=== PATIENT | male | born 1955 | race Caucasian/White ===

== ENCOUNTER 2024-06-19 17:44 | Inpatient (IN) | payer MEDICAID, MEDICARE, OTHER ==
[~2024-06-19] VITALS: Ht 182.9 cm; Wt 91.3 kg
[2024-06-19] MEDS: magnesium sulf-water 2g/50mL 50 ML IV ONE (17:59)
[2024-06-19 18:00] LABS: ABG BASE EXCESS -10.2 mmol/L (-2.0-3.0); ABG PCO2 (T) 30.4 mmHg (35.0-48.0); ABG PO2 (T) 248.8 mmHg (83.0-108.0); ALLEN'S TEST POSITIVE; FCOHb 0.2 % (0.5-1.5); FLOW 15 L/min; FMetHb 0.3 % (0.0-1.5); FO2Hb 98.5 % (94.0-98.0); MODE NRB; PATIENT TEMPERATURE 36.6; TOTAL HEMOGLOBIN 11.6 G/dl (13.5-17.5)
[2024-06-19 18:05] LABS: EOSINOPHILS # (AUTO) 0.1 X10'3 (0-0.9); EOSINOPHILS % (AUTO) 0.2 % (0-6); MEAN PLATELET VOLUME 7.4 FL (7.4-10.4); RED CELL DISTRIBUTION WIDTH 19.3 % (11.5-14.5)
[2024-06-19 18:07] LABS: BASOPHILS # (AUTO) 0.3 X10'3 (0-0.2); BASOPHILS % (AUTO) 1.1 % (0-1); HEMATOCRIT 34.5 % (42.0-52.0); HEMOGLOBIN 11.2 g/dl (14.0-17.9); LYMPHOCYTES # (AUTO) 1.8 X10'3 (1.1-4.8); LYMPHOCYTES % (AUTO) 7.5 % (21-51); MEAN CORPUSCULAR HEMOGLOBIN 27.5 PG (27.0-31.0); MEAN CORPUSCULAR HGB CONC 32.5 g/dL (33.0-36.5); MEAN CORPUSCULAR VOLUME 84.6 FL (78-98); MONOCYTES # (AUTO) 0.9 X10'3 (0-0.9); MONOCYTES % (AUTO) 3.6 % (2-12); NEUTROPHILS # (AUTO) 21.6 X10'3 (1.8-7.7); NEUTROPHILS % (AUTO) 87.6 % (42-75); PLATELET COUNT 868 X10'3 (140-440); RED BLOOD COUNT 4.07 X10'6 (4.70-6.10); WHITE BLOOD COUNT 24.7 X10'3 (4.5-11.0)
[2024-06-19] MEDS: normal saline 1000ml 1,000 ML IV ONE (18:12)
[2024-06-19] MEDS: normal saline 1000ML IV soln IVB ONE ×2 (18:13→20:44)
[2024-06-19 18:14] LABS: APTT 24 SECONDS (22-32); INR 1.3 INR; PROTHROMBIN TIME 13.3 SECONDS (9.0-12.0)
[2024-06-19] MEDS ORDERED: hydrocortisone sod succ/PF 100mg/2ml inj. IV SCH (18:20)
[2024-06-19 18:24] LABS: ALBUMIN 2.1 G/DL (3.4-5.0); ANION GAP 18 (8-16); BLOOD UREA NITROGEN 74 MG/DL (7-18); BUN/CREATININE RATIO 23.4 (10.0-20.0); CALCIUM 9.6 MG/DL (8.5-10.1); CHLORIDE 96 MMOL/L (99-107); CREATININE 3.16 MG/DL (0.60-1.10); GLUCOSE 313 MG/DL (70-104); PRO BRAIN NATRIURETIC PEPTIDE 1415 PG/ML (0-125); SODIUM 136 MMOL/L (135-145); TOTAL CARBON DIOXIDE 21.7 MMOL/L (24-32); eGFR 20 ML/MIN
[2024-06-19] MEDS: hydrocortisone sod succ/PF 100mg/2ml inj. IV ONE (18:32)
[2024-06-19] MEDS: piperacillin/tazo 3.375gm/50ml 50 ML IV ONE (18:53)
[2024-06-19 19:16] LABS: BILIRUBIN,URINE SMALL (Neg); CLARITY,URINE CLEAR (Clear); COLOR,URINE AMBER (Yellow); GLUCOSE, URINE 100 mg/dl (Neg); KETONES,URINE NEGATIVE (Neg); LEUKOCYTE ESTERASE ,URINE NEGATIVE (Neg); NITRITES, URINE NEGATIVE (Neg); OCCULT BLOOD,URINE SMALL (Neg); PROTEIN,URINE 30 mg/dl (Neg)
[2024-06-19] MEDS: ipratropium/albuterol 3ml nebule NEB ONE (19:18)
[2024-06-19 19:19] LABS: EOSINOPHILS % (MANUAL) 1 % (0-6); LARGE PLATELETS FEW; LYMPHOCYTES % (MANUAL) 6 % (21-51); METAMYLEOCYTES% (MANUAL) 3 % (0-0); MONOCYTES % (MANUAL) 3 % (2-12); NEUTROPHILS % (MANUAL) 87 % (42-75); PLATELET ESTIMATE INCREASED; POLYCHROMASIA 1+; TOTAL CELLS COUNTED 100
[2024-06-19 19:20] VITALS: PULSE 76; RESP 32; O2SAT 93
[2024-06-19 19:20] LABS: ELLIPTOCYTES 1+
[2024-06-19 19:21] LABS: UA COLLECTION TYPE FOLEY CATH
[2024-06-19 19:22] LABS: BACTERIA,URINE FEW /HPF (Neg); HYALINE CASTS 0-3 /LPF (NEGATIVE); SQUAMOUS EPITHELIAL CELL,UR NONE SEEN /LPF (FEW)
[2024-06-19 19:23] LABS: TRANSITIONAL EPI CELLS,URINE FEW /HPF; WBC,URINE NONE SEEN /HPF (0-4)
[2024-06-19 19:26] VITALS: PULSE 73; RESP 22; O2SAT 95
[2024-06-19 19:31] LABS: URINE AMPHETAMINE SCREEN NEGATIVE (Neg); URINE BARBITUATE SCREEN NEGATIVE (Neg); URINE BENZODIAZEPINES SCREEN NEGATIVE (Neg); URINE CANNABINOID SCREEN NEGATIVE (Neg); URINE COCAINE SCREEN NEGATIVE (Neg); URINE METHADONE SCREEN NEGATIVE (Neg); URINE OPIATE SCREEN NEGATIVE (Neg); URINE PHENCYCLIDINE SCREEN NEGATIVE (Neg)
[2024-06-19] MEDS: metroNIDAZOLE-Flagyl 500mg/NS 100 ML IV ONE (19:32)
[2024-06-19 20:00] LABS: ALANINE AMINOTRANSFERASE 37 U/L (12-78); ALBUMIN/GLOBULIN RATIO 0.3 (1.1-1.5); ALKALINE PHOSPHATASE 120 IU/L (46-116); ASPARTATE AMINO TRANSFERASE 70 U/L (10-37); CREATINE KINASE MB 2.9 ng/ml (0.3-3.6); TOTAL PROTEIN 8.2 G/DL (6.4-8.2)
[2024-06-19 20:03] LABS: BILIRUBIN,DIRECT 0.6 MG/DL (0-0.3); CKMB RELATIVE INDEX 0.2 RATIO (0-2.5); CREATINE KINASE 1788 U/L (39-308); PHOSPHORUS 10.9 MG/DL (2.3-4.5); POTASSIUM 5.1 MMOL/L (3.5-5.1)
[2024-06-19] MEDS: sodium bicarbonate (8.4%) 1 mEq/ml syringe IV ONE (20:04)
[2024-06-19 20:21] LABS: C-REACTIVE PROTEIN 27.18 MG/DL (0.0-0.5)
[2024-06-19] MEDS: morphine 2 MG/ML inj. syringe IV PRN (20:49)
[2024-06-19 21:07] LABS: LIPASE 28 U/L (16-77)
[2024-06-19] MEDS ORDERED: LIDOcaine 1% w/epiNEPHrine 1:200,000 30ml vial SQ ONE (23:10)
[2024-06-19] MEDS: morphine 4 MG/ML inj SYRINge IV ONE (23:24)
[2024-06-19] MEDS: ondansetron/PF 4mg/2ml inj IV ONE (23:24)
[2024-06-19] MEDS: LIDOcaine 1% W/epiNEPHrine 1:100,000 20ml vial IJ ONE (23:24)
[2024-06-19 23:44] LABS: CSF VOLUME 3.9 ML; TUBE# COUNTED 4
[2024-06-20 00:26] LABS: GLUCOSE,CSF 160 MG/DL (40-75); TOTAL PROTEIN,CSF 81 MG/DL (30-60)
[2024-06-20] MEDS: normal saline 1000ml 1,000 ML IV ONE (00:41)
[2024-06-20 00:43] LABS: CSF SUPERNATANT COLOR COLORLESS
[2024-06-20 00:44] LABS: APPEARANCE,CSF CLEAR; CSF RBC 97.2 /CU MM (0)
[2024-06-20 01:11] LABS: CSF WBC CT 1.7 /CU MM (0-5)
[2024-06-20 01:19] LABS: ABG BASE EXCESS -10.4 mmol/L (-2.0-3.0); ABG HCO3 14.6 mmol/L (21.0-28.0); ABG OXYGEN SATURATION 94.4 % (94.0-98.0); ABG PCO2 (T) 29.8 mmHg (35.0-48.0); ABG PO2 (T) 83.7 mmHg (83.0-108.0); ALLEN'S TEST Modified; FCOHb 0.3 % (0.5-1.5); FHHb 5.6 % (0.0-5.0); FLOW 5 L/min; FMetHb 0.3 % (0.0-1.5); FO2Hb 93.8 % (94.0-98.0); MODE NASAL CANNULA; PATIENT TEMPERATURE 37.3; TOTAL HEMOGLOBIN 10.7 G/dl (13.5-17.5)
[2024-06-20] MEDS: sodium bicarbonate 1meq/ml inj 150 ML in dextrose 5%-water 1,000 ML IV SCH (02:33)
[2024-06-20 03:12] LABS: APPEARANCE,CSF CLEAR; CSF SUPERNATANT COLOR COLORLESS; CSF VOLUME 3.9 ML; CSF WBC CT 2.2 /CU MM (0-5); TUBE# COUNTED 4
[2024-06-20 03:13] LABS: CSF RBC 97.8 /CU MM (0)
[2024-06-20] MEDS ORDERED: potassium Cl 40MEQ/1/2NS 520ml 520 ML IV PRN (03:30)
[2024-06-20] MEDS ORDERED: magnesium sulf-water 4G/100mL 100 ML IV PRN (03:30)
[2024-06-20] MEDS ORDERED: dextrose 50%-water 50ml dispensing syringe IV PRN ×2 (03:30)
[2024-06-20] MEDS ORDERED: HYDROcodone/acetaminophen 10/325mg tab PO PRN (03:30)
[2024-06-20] MEDS ORDERED: acetaminophen 325mg tablet PO PRN ×2 (03:30)
[2024-06-20] MEDS ORDERED: magnesium hydroxide 30ml (MOM) UD suspension PO PRN (03:30)
[2024-06-20] MEDS ORDERED: HYDROcodone/acetaminophen 5mg/325mg tablet PO PRN (03:30)
[2024-06-20] MEDS ORDERED: magnesium sulf-water 2g/50mL 50 ML IV PRN (03:30)
[2024-06-20] MEDS ORDERED: mag hydrox/Alum hydrox/simeth 30ml oral suspension PO PRN (03:30)
[2024-06-20] MEDS ORDERED: potassium Cl 20 mEq SR tablet PO PRN (03:30)
[2024-06-20] MEDS ORDERED: magnesium Cl slow-release 64mg tablet PO PRN (03:30)
[2024-06-20] MEDS ORDERED: glucagon, human recombinant 1mg kit SUBCUT PRN (03:30)
[2024-06-20] MEDS ORDERED: DEXTROSE 15 GM of carb/4 tabs (each vial/BOTTLE has 4 tablets) PO PRN ×2 (03:30)
[2024-06-20] MEDS: LidoCAINE 2% Topical Jelly 11mL syringe (UROJET) TOP ONE (04:02)
[2024-06-20] MEDS: VANCOMYCIN/WATER FOR INJ (PEG) 1.5GM/300 ML IVPB IV ONE (04:50)
[2024-06-20] MEDS: ondansetron/PF 4mg/2ml inj IV PRN (05:33)
[2024-06-20] MEDS: INSULIN LISPRO 100 UNIT/ML INSULN.PEN MULTI-DOSE SQ SCH ×2 (07:32→09:00)
[2024-06-20] MEDS: docusate sod 100mg capsule PO SCH (07:35)
[2024-06-20] MEDS: heparin, porcine 5000 units/ml vial SQ SCH (07:36)
[2024-06-20] MEDS: piperacillin/tazo 4.5gm/100ml 100 ML IV SCH (07:37)
[2024-06-20 07:56] LABS: POTASSIUM 4.6 MMOL/L (3.5-5.1); URIC ACID 9.2 MG/DL (3.5-7.2)
[2024-06-20] MEDS: K and/or MAG REPLACEMENT MC SCH (08:00)
[2024-06-20 08:09] LABS: HEMOGLOBIN A1C 8.2 % (4.5-6.2)
[2024-06-20 08:45] LABS: BASOPHILS # (AUTO) 0.1 X10'3 (0-0.2); BASOPHILS % (AUTO) 0.2 % (0-1); EOSINOPHILS % (AUTO) 0 % (0-6)
[2024-06-20 08:46] LABS: HEMOGLOBIN 9.6 g/dl (14.0-17.9); MEAN CORPUSCULAR HGB CONC 31.9 g/dL (33.0-36.5); MEAN CORPUSCULAR VOLUME 84.6 FL (78-98); MONOCYTES # (AUTO) 0.7 X10'3 (0-0.9); NEUTROPHILS # (AUTO) 22.4 X10'3 (1.8-7.7); NEUTROPHILS % (AUTO) 92.8 % (42-75); PLATELET COUNT 604 X10'3 (140-440); RED BLOOD COUNT 3.55 X10'6 (4.70-6.10); RED CELL DISTRIBUTION WIDTH 19.3 % (11.5-14.5); WHITE BLOOD COUNT 24.1 X10'3 (4.5-11.0)
[2024-06-20 09:10] LABS: ALANINE AMINOTRANSFERASE 40 U/L (12-78); ALKALINE PHOSPHATASE 83 IU/L (46-116); ANION GAP 14 (8-16); ASPARTATE AMINO TRANSFERASE 125 U/L (10-37); BILIRUBIN,TOTAL 0.8 MG/DL (0.1-1.0); BLOOD UREA NITROGEN 66 MG/DL (7-18); BUN/CREATININE RATIO 24.4 (10.0-20.0); CALCIUM 7.1 MG/DL (8.5-10.1); CHLORIDE 109 MMOL/L (99-107); CREATININE 2.71 MG/DL (0.60-1.10); GLUCOSE 355 MG/DL (70-104); MAGNESIUM 2.6 MG/DL (1.5-2.4); POTASSIUM 4.3 MMOL/L (3.5-5.1); SODIUM 144 MMOL/L (135-145); TOTAL CARBON DIOXIDE 21.5 MMOL/L (24-32); TOTAL PROTEIN 5.5 G/DL (6.4-8.2); eCRCL 29 ML/MIN; eGFR 24 ML/MIN
[2024-06-20 09:15] LABS: ALBUMIN 1.3 G/DL (3.4-5.0); ALBUMIN/GLOBULIN RATIO 0.3 (1.1-1.5)
[2024-06-20 09:38] LABS: C DIFF ANTIGEN NEGATIVE (NEGATIVE); C DIFF SPECIMEN=DIARRHEA? ACCEPTABLE; C DIFFICILE TOXINS A&B NEGATIVE (Neg)
[2024-06-20 10:03] VITALS: PULSE 88; RESP 22; O2SAT 95
[2024-06-20] MEDS ORDERED: levetiracetam inj 1,000 MG in normal saline 100ml IV soln 100 ML IV ONE (13:35)
[2024-06-20] MEDS: levetiracetam-NACL1000mg/100ml 100 ML IV ONE (13:50)
[2024-06-20] MEDS: acetaminophen 1,000mg/100ml IV 100 ML IV ONE (14:05)
[2024-06-20] MEDS: normal saline 1000ml 1,000 ML IV SCH (14:06)
[2024-06-20 20:10] LABS: ALANINE AMINOTRANSFERASE 44 U/L (12-78); ALBUMIN 1.3 G/DL (3.4-5.0); ALBUMIN/GLOBULIN RATIO 0.3 (1.1-1.5); ALKALINE PHOSPHATASE 87 IU/L (46-116); ANION GAP 10 (8-16); ASPARTATE AMINO TRANSFERASE 142 U/L (10-37); BILIRUBIN,TOTAL 0.7 MG/DL (0.1-1.0); BLOOD UREA NITROGEN 60 MG/DL (7-18); BUN/CREATININE RATIO 22.5 (10.0-20.0); CALCIUM 7.2 MG/DL (8.5-10.1); CHLORIDE 112 MMOL/L (99-107); CREATININE 2.67 MG/DL (0.60-1.10); GLUCOSE 241 MG/DL (70-104); POTASSIUM 3.8 MMOL/L (3.5-5.1); SODIUM 150 MMOL/L (135-145); TOTAL CARBON DIOXIDE 28.4 MMOL/L (24-32); TOTAL PROTEIN 5.7 G/DL (6.4-8.2); eCRCL 30 ML/MIN; eGFR 24 ML/MIN
[2024-06-20] MEDS: insulin glargine (Lantus) pen - multi-dose SQ SCH (21:00)
[2024-06-20] MEDS: sodium chloride 0.45% 1,000 ML IV SCH (23:33)
[2024-06-21] VITALS (8 sets, daily range): BP systolic 88–109; BP diastolic 48–77; PULSE 73–92; RESP 18–24; TEMP 97–98.8; O2SAT 95–98
[2024-06-21] MEDS: morphine 2 MG/ML inj. syringe IV PRN (00:17)
[2024-06-21 06:54] LABS: BASOPHILS # (AUTO) 0.1 X10'3 (0-0.2); BASOPHILS % (AUTO) 0.6 % (0-1); EOSINOPHILS # (AUTO) 0.1 X10'3 (0-0.9); EOSINOPHILS % (AUTO) 0.7 % (0-6); HEMATOCRIT 31.7 % (42.0-52.0); HEMOGLOBIN 10.1 g/dl (14.0-17.9); LYMPHOCYTES # (AUTO) 1.3 X10'3 (1.1-4.8); LYMPHOCYTES % (AUTO) 7.4 % (21-51); MEAN CORPUSCULAR HEMOGLOBIN 26.8 PG (27.0-31.0); MEAN CORPUSCULAR HGB CONC 31.7 g/dL (33.0-36.5); MEAN CORPUSCULAR VOLUME 84.4 FL (78-98); MEAN PLATELET VOLUME 7.2 FL (7.4-10.4); MONOCYTES # (AUTO) 0.9 X10'3 (0-0.9); MONOCYTES % (AUTO) 5.1 % (2-12); NEUTROPHILS # (AUTO) 15.5 X10'3 (1.8-7.7); NEUTROPHILS % (AUTO) 86.2 % (42-75); PLATELET COUNT 552 X10'3 (140-440); RED BLOOD COUNT 3.76 X10'6 (4.70-6.10); RED CELL DISTRIBUTION WIDTH 19.4 % (11.5-14.5)
[2024-06-21 07:02] LABS: APTT 26 SECONDS (22-32); INR 1.3 INR; PROTHROMBIN TIME 13.7 SECONDS (9.0-12.0)
[2024-06-21 07:07] LABS: ALANINE AMINOTRANSFERASE 51 U/L (12-78); ALBUMIN 1.3 G/DL (3.4-5.0); ALBUMIN/GLOBULIN RATIO 0.3 (1.1-1.5); ALKALINE PHOSPHATASE 83 IU/L (46-116); ANION GAP 8 (8-16); ASPARTATE AMINO TRANSFERASE 145 U/L (10-37); BILIRUBIN,TOTAL 0.6 MG/DL (0.1-1.0); BLOOD UREA NITROGEN 56 MG/DL (7-18); BUN/CREATININE RATIO 22.4 (10.0-20.0); CHLORIDE 113 MMOL/L (99-107); GLUCOSE 239 MG/DL (70-104); HDL CHOLESTEROL 13 MG/DL (35-60); LDL CHOLESTEROL 21 MG/DL (50-100); MAGNESIUM 2.6 MG/DL (1.5-2.4); PHOSPHORUS 4.6 MG/DL (2.3-4.5); POTASSIUM 3.5 MMOL/L (3.5-5.1); SODIUM 149 MMOL/L (135-145); TOTAL CARBON DIOXIDE 28.1 MMOL/L (24-32); TOTAL PROTEIN 5.7 G/DL (6.4-8.2); TRIGLYCERIDES 109 MG/DL (20-135); eCRCL 32 ML/MIN; eGFR 26 ML/MIN
[2024-06-21 07:28] LABS: CHOLESTEROL < 50 MG/DL (0-200)
[2024-06-21 08:01] LABS: ANISOCYTOSIS 2+; HYPOCHROMASIA 1+; PLATELET ESTIMATE INCREASED
[2024-06-21 08:02] LABS: ELLIPTOCYTES FEW; LARGE PLATELETS FEW; POLYCHROMASIA FEW
[2024-06-21 11:07] LABS: CREATINE KINASE 4397 U/L (39-308)
[2024-06-21] MEDS: dextrose 5%-water 1,000 ML IV SCH (11:28)
[2024-06-21] MEDS ORDERED: ATOR-2 PO (13:16)
[2024-06-21] MEDS ORDERED: LOSA50TA64 PO (13:16)
[2024-06-21] MEDS ORDERED: METO-384 PO (13:16)
[2024-06-21] MEDS ORDERED: METF-438 PO (13:16)
[2024-06-21] MEDS ORDERED: INSU100I39 (18:09)
[2024-06-21] MEDS: insulin glargine (Lantus) pen - multi-dose SQ SCH (20:23)
[2024-06-22] VITALS (7 sets, daily range): BP systolic 96–100; BP diastolic 54–58; PULSE 65–100; RESP 18–24; TEMP 96.9–99; O2SAT 91–100
[2024-06-22] MEDS: VANCOMYCIN/WATER FOR INJ (PEG) 750MG/150 ML IVPB IV SCH (05:10)
[2024-06-22 06:48] LABS: APTT 27 SECONDS (22-32); INR 1.3 INR; PROTHROMBIN TIME 12.9 SECONDS (9.0-12.0)
[2024-06-22 06:50] LABS: BASOPHILS # (AUTO) 0.1 X10'3 (0-0.2); BASOPHILS % (AUTO) 1.1 % (0-1); EOSINOPHILS # (AUTO) 0.1 X10'3 (0-0.9); HEMATOCRIT 31.1 % (42.0-52.0); HEMOGLOBIN 9.9 g/dl (14.0-17.9); LYMPHOCYTES # (AUTO) 1.2 X10'3 (1.1-4.8); LYMPHOCYTES % (AUTO) 9.1 % (21-51); MEAN CORPUSCULAR HEMOGLOBIN 27.3 PG (27.0-31.0); MEAN CORPUSCULAR HGB CONC 31.9 g/dL (33.0-36.5); MEAN CORPUSCULAR VOLUME 85.7 FL (78-98); MEAN PLATELET VOLUME 7.4 FL (7.4-10.4); MONOCYTES # (AUTO) 0.7 X10'3 (0-0.9); NEUTROPHILS # (AUTO) 11.4 X10'3 (1.8-7.7); NEUTROPHILS % (AUTO) 83.8 % (42-75); PLATELET COUNT 503 X10'3 (140-440); RED BLOOD COUNT 3.63 X10'6 (4.70-6.10); WHITE BLOOD COUNT 13.7 X10'3 (4.5-11.0)
[2024-06-22 07:23] LABS: GLUCOSE 283 MG/DL (70-104)
[2024-06-22 07:24] LABS: ALANINE AMINOTRANSFERASE 47 U/L (12-78); ALBUMIN 1.2 G/DL (3.4-5.0); ALBUMIN/GLOBULIN RATIO 0.3 (1.1-1.5); ALKALINE PHOSPHATASE 78 IU/L (46-116); ANION GAP 8 (8-16); ASPARTATE AMINO TRANSFERASE 115 U/L (10-37); BILIRUBIN,TOTAL 0.6 MG/DL (0.1-1.0); BLOOD UREA NITROGEN 40 MG/DL (7-18); BUN/CREATININE RATIO 20.1 (10.0-20.0); CHLORIDE 110 MMOL/L (99-107); CREATININE 1.99 MG/DL (0.60-1.10); MAGNESIUM 2.4 MG/DL (1.5-2.4); PHOSPHORUS 3.1 MG/DL (2.3-4.5); POTASSIUM 3.2 MMOL/L (3.5-5.1); SODIUM 146 MMOL/L (135-145); TOTAL CARBON DIOXIDE 28.5 MMOL/L (24-32); TOTAL PROTEIN 5.3 G/DL (6.4-8.2); eCRCL 40 ML/MIN; eGFR 34 ML/MIN
[2024-06-22 07:25] LABS: CREATINE KINASE 2870 U/L (39-308)
[2024-06-22] MEDS: potassium Cl 20 mEq SR tablet PO PRN (08:54)
[2024-06-22] MEDS ORDERED: insulin glargine (Lantus) pen - multi-dose SQ SCH (21:00)
[2024-06-22] MEDS: insulin glargine (Lantus) pen - multi-dose SQ SCH (21:18)
[2024-06-22] MEDS: piperacillin/tazo 4.5gm/100ml 100 ML IV SCH (21:51)
[2024-06-23] VITALS (8 sets, daily range): BP systolic 96–131; BP diastolic 45–72; PULSE 66–85; RESP 16–20; TEMP 97.3–99.9; O2SAT 93–96
[2024-06-23] MEDS: VANCOMYCIN LEVEL IV ONE (04:42)
[2024-06-23 06:07] LABS: BASOPHILS # (AUTO) 0.1 X10'3 (0-0.2); BASOPHILS % (AUTO) 0.7 % (0-1); EOSINOPHILS # (AUTO) 0.1 X10'3 (0-0.9); EOSINOPHILS % (AUTO) 0.7 % (0-6); HEMATOCRIT 33.1 % (42.0-52.0); HEMOGLOBIN 10.5 g/dl (14.0-17.9); LYMPHOCYTES # (AUTO) 1.4 X10'3 (1.1-4.8); LYMPHOCYTES % (AUTO) 11.9 % (21-51); MEAN CORPUSCULAR HEMOGLOBIN 26.6 PG (27.0-31.0); MEAN CORPUSCULAR HGB CONC 31.7 g/dL (33.0-36.5); MEAN CORPUSCULAR VOLUME 83.9 FL (78-98); MEAN PLATELET VOLUME 7.2 FL (7.4-10.4); MONOCYTES # (AUTO) 0.7 X10'3 (0-0.9); MONOCYTES % (AUTO) 5.7 % (2-12); NEUTROPHILS # (AUTO) 9.3 X10'3 (1.8-7.7); PLATELET COUNT 459 X10'3 (140-440); RED BLOOD COUNT 3.94 X10'6 (4.70-6.10); RED CELL DISTRIBUTION WIDTH 19.1 % (11.5-14.5); WHITE BLOOD COUNT 11.5 X10'3 (4.5-11.0)
[2024-06-23 06:24] LABS: APTT 28 SECONDS (22-32); INR 1.2 INR; PROTHROMBIN TIME 12.2 SECONDS (9.0-12.0)
[2024-06-23 06:26] LABS: ALANINE AMINOTRANSFERASE 44 U/L (12-78); ALBUMIN 1.2 G/DL (3.4-5.0); ALBUMIN/GLOBULIN RATIO 0.3 (1.1-1.5); ALKALINE PHOSPHATASE 78 IU/L (46-116); ANION GAP 8 (8-16); ASPARTATE AMINO TRANSFERASE 80 U/L (10-37); BILIRUBIN,TOTAL 0.6 MG/DL (0.1-1.0); BLOOD UREA NITROGEN 24 MG/DL (7-18); BUN/CREATININE RATIO 17.5 (10.0-20.0); CALCIUM 7.3 MG/DL (8.5-10.1); CHLORIDE 105 MMOL/L (99-107); CREATININE 1.37 MG/DL (0.60-1.10); GLUCOSE 234 MG/DL (70-104); MAGNESIUM 2.1 MG/DL (1.5-2.4); SODIUM 138 MMOL/L (135-145); TOTAL CARBON DIOXIDE 24.6 MMOL/L (24-32); TOTAL PROTEIN 5.2 G/DL (6.4-8.2); VANCOMYCIN,TROUGH 8.5 ug/mL (10.0-20.0); eCRCL 58 ML/MIN; eGFR 52 ML/MIN
[2024-06-23 07:07] LABS: POTASSIUM 2.9 MMOL/L (3.5-5.1)
[2024-06-23] MEDS ORDERED: magnesium sulf-water 4G/100mL 100 ML IV PRN (07:35)
[2024-06-23] MEDS ORDERED: magnesium Cl slow-release 64mg tablet PO PRN (07:35)
[2024-06-23] MEDS ORDERED: potassium Cl 40MEQ/1/2NS 520ml 520 ML IV PRN (07:35)
[2024-06-23] MEDS ORDERED: magnesium sulf-water 2g/50mL 50 ML IV PRN (07:35)
[2024-06-23] MEDS ORDERED: atorvastatin 20mg tablet PO SCH (08:00)
[2024-06-23] MEDS: K and/or MAG REPLACEMENT MC SCH (08:47)
[2024-06-23] MEDS: potassium Cl 20 mEq SR tablet PO PRN (08:58)
[2024-06-23 14:48] LABS: CREATINE KINASE MB 1.2 ng/ml (0.3-3.6)
[2024-06-23] MEDS: lactose-reduced food (Ensure Enlive) - 237ml bottle PO SCH (18:00)
[2024-06-24] VITALS (8 sets, daily range): BP systolic 101–133; BP diastolic 62–77; PULSE 81–101; RESP 16–20; TEMP 97.8–99.3; O2SAT 94–99
[2024-06-24] MEDS ORDERED: VANCOMYCIN 1GM 200ML H20 (PEG) 200 ML IV SCH (05:00)
[2024-06-24 06:46] LABS: BASOPHILS # (AUTO) 0.1 X10'3 (0-0.2); BASOPHILS % (AUTO) 1.2 % (0-1); EOSINOPHILS # (AUTO) 0.1 X10'3 (0-0.9); EOSINOPHILS % (AUTO) 0.5 % (0-6); HEMATOCRIT 33.8 % (42.0-52.0); HEMOGLOBIN 10.6 g/dl (14.0-17.9); LYMPHOCYTES # (AUTO) 1.8 X10'3 (1.1-4.8); LYMPHOCYTES % (AUTO) 14.7 % (21-51); MEAN CORPUSCULAR HEMOGLOBIN 26.7 PG (27.0-31.0); MEAN CORPUSCULAR HGB CONC 31.5 g/dL (33.0-36.5); MEAN CORPUSCULAR VOLUME 84.8 FL (78-98); MEAN PLATELET VOLUME 7.7 FL (7.4-10.4); MONOCYTES # (AUTO) 0.7 X10'3 (0-0.9); MONOCYTES % (AUTO) 6.3 % (2-12); NEUTROPHILS # (AUTO) 9.2 X10'3 (1.8-7.7); NEUTROPHILS % (AUTO) 77.3 % (42-75); PLATELET COUNT 469 X10'3 (140-440); RED BLOOD COUNT 3.99 X10'6 (4.70-6.10); RED CELL DISTRIBUTION WIDTH 18.9 % (11.5-14.5); WHITE BLOOD COUNT 11.9 X10'3 (4.5-11.0)
[2024-06-24 06:51] LABS: INR 1.2 INR; PROTHROMBIN TIME 12.6 SECONDS (9.0-12.0)
[2024-06-24 06:54] LABS: ALANINE AMINOTRANSFERASE 37 U/L (12-78); ALBUMIN 1.3 G/DL (3.4-5.0); ALBUMIN/GLOBULIN RATIO 0.3 (1.1-1.5); ALKALINE PHOSPHATASE 80 IU/L (46-116); ANION GAP 8 (8-16); ASPARTATE AMINO TRANSFERASE 66 U/L (10-37); BILIRUBIN,TOTAL 0.5 MG/DL (0.1-1.0); BLOOD UREA NITROGEN 19 MG/DL (7-18); CALCIUM 7.7 MG/DL (8.5-10.1); CHLORIDE 104 MMOL/L (99-107); CREATININE 1.19 MG/DL (0.60-1.10); GLUCOSE 252 MG/DL (70-104); PHOSPHORUS 2.4 MG/DL (2.3-4.5); POTASSIUM 3.3 MMOL/L (3.5-5.1); SODIUM 136 MMOL/L (135-145); TOTAL CARBON DIOXIDE 23.9 MMOL/L (24-32); TOTAL PROTEIN 5.4 G/DL (6.4-8.2); eCRCL 67 ML/MIN; eGFR 61 ML/MIN
[2024-06-24] MEDS: potassium Cl 20 mEq SR tablet PO PRN (08:18)
[2024-06-24 09:45] LABS: PRO BRAIN NATRIURETIC PEPTIDE 1436 PG/ML (0-125)
[2024-06-24] MEDS: furosemide 40mg/4ml inj IV SCH (11:32)
[2024-06-24] MEDS: morphine 2 MG/ML inj. syringe IV PRN (21:02)
[2024-06-24 21:48] LABS: HEMATOCRIT 32.4 % (42.0-52.0); HEMOGLOBIN 10.4 g/dl (14.0-17.9); MEAN CORPUSCULAR HEMOGLOBIN 26.8 PG (27.0-31.0); MEAN CORPUSCULAR VOLUME 83.8 FL (78-98); MEAN PLATELET VOLUME 7.1 FL (7.4-10.4); PLATELET COUNT 454 X10'3 (140-440); RED BLOOD COUNT 3.86 X10'6 (4.70-6.10); RED CELL DISTRIBUTION WIDTH 18.4 % (11.5-14.5); WHITE BLOOD COUNT 12.2 X10'3 (4.5-11.0)
[2024-06-25 02:00] VITALS: BP 115/62; PULSE 81; RESP 20; TEMP 97.6; O2SAT 93
[2024-06-25] MEDS: pantoprazole 40 MG vial IV SCH (02:41)
[2024-06-25 06:00] VITALS: BP 128/61; PULSE 83; RESP 16; TEMP 97.6; O2SAT 94
[2024-06-25 06:35] LABS: BASOPHILS # (AUTO) 0.1 X10'3 (0-0.2); BASOPHILS % (AUTO) 0.8 % (0-1); EOSINOPHILS # (AUTO) 0.1 X10'3 (0-0.9); HEMATOCRIT 29.4 % (42.0-52.0); HEMOGLOBIN 9.6 g/dl (14.0-17.9); LYMPHOCYTES # (AUTO) 1.7 X10'3 (1.1-4.8); MEAN CORPUSCULAR HEMOGLOBIN 27.3 PG (27.0-31.0); MEAN CORPUSCULAR HGB CONC 32.6 g/dL (33.0-36.5); MEAN CORPUSCULAR VOLUME 83.9 FL (78-98); MEAN PLATELET VOLUME 7.3 FL (7.4-10.4); MONOCYTES # (AUTO) 0.8 X10'3 (0-0.9); MONOCYTES % (AUTO) 7.4 % (2-12); NEUTROPHILS # (AUTO) 8.6 X10'3 (1.8-7.7); NEUTROPHILS % (AUTO) 75.8 % (42-75); PLATELET COUNT 413 X10'3 (140-440); RED CELL DISTRIBUTION WIDTH 18.4 % (11.5-14.5); WHITE BLOOD COUNT 11.4 X10'3 (4.5-11.0)
[2024-06-25 06:43] LABS: INR 1.2 INR; PROTHROMBIN TIME 12.4 SECONDS (9.0-12.0)
[2024-06-25 06:52] LABS: ALANINE AMINOTRANSFERASE 33 U/L (12-78); ALBUMIN 1.4 G/DL (3.4-5.0); ALBUMIN/GLOBULIN RATIO 0.4 (1.1-1.5); ALKALINE PHOSPHATASE 75 IU/L (46-116); ANION GAP 6 (8-16); ASPARTATE AMINO TRANSFERASE 53 U/L (10-37); BILIRUBIN,TOTAL 0.4 MG/DL (0.1-1.0); BLOOD UREA NITROGEN 20 MG/DL (7-18); BUN/CREATININE RATIO 15.5 (10.0-20.0); CALCIUM 7.7 MG/DL (8.5-10.1); CHLORIDE 106 MMOL/L (99-107); CREATININE 1.29 MG/DL (0.60-1.10); GLUCOSE 215 MG/DL (70-104); MAGNESIUM 1.7 MG/DL (1.5-2.4); PHOSPHORUS 2.7 MG/DL (2.3-4.5); POTASSIUM 3.3 MMOL/L (3.5-5.1); SODIUM 140 MMOL/L (135-145); TOTAL CARBON DIOXIDE 27.9 MMOL/L (24-32); TOTAL PROTEIN 5.2 G/DL (6.4-8.2); eCRCL 62 ML/MIN; eGFR 56 ML/MIN
[2024-06-25 11:00] VITALS: BP 112/66; PULSE 81; RESP 14; TEMP 97.6; O2SAT 94
[2024-06-25] MEDS ORDERED: FURO-150 PO (11:24)
[2024-06-25] MEDS ORDERED: LEVO-65 PO (11:24)
[2024-06-25] MEDS ORDERED: LANTUS SQ (11:24)
[2024-06-25 15:00] VITALS: BP 95/50; PULSE 81; RESP 16; TEMP 97.3; O2SAT 95
[2024-06-25 18:00] VITALS: BP 145/68; PULSE 74; RESP 18; TEMP 97.3; O2SAT 97
[2024-06-25] MEDS: lactose-reduced food (Ensure Enlive) - 237ml bottle PO SCH (18:00)
[2024-06-25 22:00] VITALS: BP 132/67; PULSE 77; RESP 18; TEMP 97.7; O2SAT 97
[2024-06-26 02:00] VITALS: BP 131/66; PULSE 78; RESP 16; TEMP 97.8; O2SAT 94
[2024-06-26 06:00] VITALS: BP 123/60; PULSE 78; RESP 16; TEMP 97.8; O2SAT 95
[2024-06-26 07:30] LABS: BASOPHILS # (AUTO) 0.1 X10'3 (0-0.2); EOSINOPHILS # (AUTO) 0.2 X10'3 (0-0.9); EOSINOPHILS % (AUTO) 1.8 % (0-6); HEMATOCRIT 27.5 % (42.0-52.0); HEMOGLOBIN 9.2 g/dl (14.0-17.9); LYMPHOCYTES # (AUTO) 1.6 X10'3 (1.1-4.8); LYMPHOCYTES % (AUTO) 18.2 % (21-51); MEAN CORPUSCULAR HEMOGLOBIN 27.9 PG (27.0-31.0); MEAN CORPUSCULAR HGB CONC 33.3 g/dL (33.0-36.5); MEAN CORPUSCULAR VOLUME 83.5 FL (78-98); MEAN PLATELET VOLUME 7.1 FL (7.4-10.4); MONOCYTES # (AUTO) 0.8 X10'3 (0-0.9); MONOCYTES % (AUTO) 8.9 % (2-12); NEUTROPHILS # (AUTO) 6.3 X10'3 (1.8-7.7); NEUTROPHILS % (AUTO) 70.1 % (42-75); PLATELET COUNT 406 X10'3 (140-440); RED BLOOD COUNT 3.29 X10'6 (4.70-6.10); WHITE BLOOD COUNT 8.9 X10'3 (4.5-11.0)
[2024-06-26 09:12] LABS: BASOPHILS # (AUTO) 0.1 X10'3 (0-0.2); BASOPHILS % (AUTO) 0.9 % (0-1); EOSINOPHILS # (AUTO) 0.2 X10'3 (0-0.9); EOSINOPHILS % (AUTO) 1.7 % (0-6); HEMATOCRIT 30.4 % (42.0-52.0); LYMPHOCYTES # (AUTO) 1.9 X10'3 (1.1-4.8); LYMPHOCYTES % (AUTO) 19.8 % (21-51); MEAN CORPUSCULAR HEMOGLOBIN 27.4 PG (27.0-31.0); MEAN CORPUSCULAR HGB CONC 32.7 g/dL (33.0-36.5); MEAN CORPUSCULAR VOLUME 83.7 FL (78-98); MEAN PLATELET VOLUME 7.2 FL (7.4-10.4); MONOCYTES # (AUTO) 0.7 X10'3 (0-0.9); MONOCYTES % (AUTO) 7.2 % (2-12); NEUTROPHILS # (AUTO) 6.9 X10'3 (1.8-7.7); NEUTROPHILS % (AUTO) 70.4 % (42-75); PLATELET COUNT 451 X10'3 (140-440); RED BLOOD COUNT 3.63 X10'6 (4.70-6.10); RED CELL DISTRIBUTION WIDTH 18.5 % (11.5-14.5); WHITE BLOOD COUNT 9.7 X10'3 (4.5-11.0)
[2024-06-26 09:22] LABS: ALANINE AMINOTRANSFERASE 42 U/L (12-78); ALBUMIN 1.6 G/DL (3.4-5.0); ALBUMIN/GLOBULIN RATIO 0.4 (1.1-1.5); ALKALINE PHOSPHATASE 79 IU/L (46-116); ANION GAP 6 (8-16); ASPARTATE AMINO TRANSFERASE 59 U/L (10-37); BILIRUBIN,TOTAL 0.4 MG/DL (0.1-1.0); BLOOD UREA NITROGEN 14 MG/DL (7-18); BUN/CREATININE RATIO 11.6 (10.0-20.0); CALCIUM 8.2 MG/DL (8.5-10.1); CHLORIDE 103 MMOL/L (99-107); CREATININE 1.21 MG/DL (0.60-1.10); POTASSIUM 3.2 MMOL/L (3.5-5.1); SODIUM 139 MMOL/L (135-145); TOTAL CARBON DIOXIDE 30.1 MMOL/L (24-32); eCRCL 66 ML/MIN; eGFR 60 ML/MIN
[2024-06-26 09:26] LABS: GLUCOSE 170 MG/DL (70-104)
[2024-06-26 11:00] VITALS: BP 114/71; PULSE 81; RESP 25; TEMP 98; O2SAT 92
[2024-06-26] MEDS: potassium Cl 20 mEq SR tablet PO STA (12:12)
[2024-06-26] MEDS ORDERED: potassium Cl 40MEQ/1/2NS 520ml 520 ML IV PRN (13:05)
[2024-06-26] MEDS ORDERED: magnesium sulf-water 2g/50mL 50 ML IV PRN (13:05)
[2024-06-26] MEDS ORDERED: magnesium Cl slow-release 64mg tablet PO PRN (13:05)
[2024-06-26] MEDS ORDERED: potassium Cl 20 mEq SR tablet PO PRN ×2 (13:05)
[2024-06-26] MEDS ORDERED: magnesium sulf-water 4G/100mL 100 ML IV PRN (13:05)
[2024-06-26] MEDS ORDERED: K and/or MAG REPLACEMENT MC SCH (20:00)
[2024-06-26] MEDS ORDERED: ALBU8HFA INH (21:22)
[2024-06-27] MEDS ORDERED: VANCOMYCIN LEVEL IV ONE (04:30)
== END 2024-06-26 13:11 | DRG 871 ==
LOC: ER 17:44 → ED HOLD 06-20 02:03 → EEVIPCON 06-20 02:03 → PCU 3S 06-20 22:15
PROVIDERS: ADMIT Surgery Surgical Critical Care; ATTEND Internal Medicine
PROC: 009U3ZZ Drainage of Spinal Canal, Percutaneous Approach (ICD-10-PCS; principal; 2024-06-20)
PROC: 4A00X4Z Measurement of Central Nervous Electrical Activity, External Approach (ICD-10-PCS; 2024-06-22)
DX: A41.9 Sepsis, unspecified organism (principal); G93.41 Metabolic encephalopathy; R65.21 Severe sepsis with septic shock; K65.9 Peritonitis, unspecified; J96.01 Acute respiratory failure with hypoxia; I13.0 Hypertensive heart and chronic kidney disease with heart failure and stage 1 through stage 4 chronic kidney disease, or unspecified chronic kidney disease; N18.4 Chronic kidney disease, stage 4 (severe); N17.9 Acute kidney failure, unspecified; E87.0 Hyperosmolality and hypernatremia; Z20.822 Contact with and (suspected) exposure to COVID-19; I25.10 Atherosclerotic heart disease of native coronary artery without angina pectoris; N13.9 Obstructive and reflux uropathy, unspecified; E11.22 Type 2 diabetes mellitus with diabetic chronic kidney disease; E78.5 Hyperlipidemia, unspecified; I50.9 Heart failure, unspecified; E83.39 Other disorders of phosphorus metabolism; E83.42 Hypomagnesemia; E87.6 Hypokalemia; D64.9 Anemia, unspecified; E88.09 Other disorders of plasma-protein metabolism, not elsewhere classified; Z95.1 Presence of aortocoronary bypass graft; Z79.899 Other long term (current) drug therapy; Z79.84 Long term (current) use of oral hypoglycemic drugs
CPT/HCPCS: 36415; 36600; 70450; 70551; 71045; 74176; 76700; 76770; 80048; 80053; 80061; 80076; 80202; 80305; 81001; 82140; 82550; 82553; 82803; 82945; 82948; 83036; 83605; 83690; 83735; 83874; 83880; 84100; 84132; 84145; 84157; 84484; 84550; 85007; 85008; 85018; 85025; 85027; 85610; 85651; 85730; 86140; 87015; 87040; 87070; 87077; 87081; 87186; 87324; 87449; 87502; 87503; 87811; 89051; 92508; 92616; 93005; 93308; 94640; 94760; 95816; 96365; 96367; 97161; 97530; 99291; A4615; A4620; A5200; A6209; A6212; A6213; A6222; A6223; A6250; A6253; A6258; A6260; A6402; A6446; A6449; A6455; A6590; C1758; G0378; J0131; J1644; J1720; J1815; J1940; J1953; J2270; J2405; J2470; J2543; J3372; J3490; J7030; J7040; J7042; J7050; J7070

== ENCOUNTER 2024-06-26 16:53 | Inpatient (IN) | payer MEDICARE, MEDICAID ==
[~2024-06-26] VITALS: Ht 175.3 cm; Wt 89.0 kg
[~2024-06-26 16:53] MED LIST: ATOR-2 PO; FURO-150 PO; INSU100I39; LANTUS SQ; LEVO-65 PO; METO-384 PO
[2024-06-26 19:29] LABS: BASOPHILS # (AUTO) 0.1 X10'3 (0-0.2); BASOPHILS % (AUTO) 0.9 % (0-1); EOSINOPHILS # (AUTO) 0.1 X10'3 (0-0.9); EOSINOPHILS % (AUTO) 1.1 % (0-6); HEMOGLOBIN 9.6 g/dl (14.0-17.9); LYMPHOCYTES # (AUTO) 1.6 X10'3 (1.1-4.8); LYMPHOCYTES % (AUTO) 14.7 % (21-51); MEAN CORPUSCULAR HEMOGLOBIN 26.9 PG (27.0-31.0); MEAN CORPUSCULAR HGB CONC 32.2 g/dL (33.0-36.5); MEAN CORPUSCULAR VOLUME 83.5 FL (78-98); MEAN PLATELET VOLUME 7.1 FL (7.4-10.4); MONOCYTES # (AUTO) 0.8 X10'3 (0-0.9); MONOCYTES % (AUTO) 7.8 % (2-12); NEUTROPHILS % (AUTO) 75.5 % (42-75); PLATELET COUNT 449 X10'3 (140-440); RED BLOOD COUNT 3.59 X10'6 (4.70-6.10); RED CELL DISTRIBUTION WIDTH 18.9 % (11.5-14.5); WHITE BLOOD COUNT 10.6 X10'3 (4.5-11.0)
[2024-06-26 19:51] LABS: ALANINE AMINOTRANSFERASE 36 U/L (12-78); ALBUMIN 1.7 G/DL (3.4-5.0); ALBUMIN/GLOBULIN RATIO 0.4 (1.1-1.5); ALKALINE PHOSPHATASE 75 IU/L (46-116); ANION GAP 7 (8-16); ASPARTATE AMINO TRANSFERASE 53 U/L (10-37); BILIRUBIN,TOTAL 0.4 MG/DL (0.1-1.0); BLOOD UREA NITROGEN 13 MG/DL (7-18); BUN/CREATININE RATIO 9.9 (10.0-20.0); CHLORIDE 102 MMOL/L (99-107); CREATININE 1.31 MG/DL (0.60-1.10); GLUCOSE 233 MG/DL (70-104); LIPASE 34 U/L (16-77); PRO BRAIN NATRIURETIC PEPTIDE 837 PG/ML (0-125); SODIUM 141 MMOL/L (135-145); TOTAL CARBON DIOXIDE 31.7 MMOL/L (24-32); TOTAL PROTEIN 5.9 G/DL (6.4-8.2); eCRCL 55 ML/MIN; eGFR 55 ML/MIN
[2024-06-26 20:21] LABS: POTASSIUM 2.9 MMOL/L (3.5-5.1)
[2024-06-26] MEDS: potassium Cl 20 mEq SR tablet PO STA (21:06)
[2024-06-26] MEDS ORDERED: ALBU8HFA INH (21:22)
[2024-06-26] MEDS ORDERED: acetaminophen 325mg tablet PO PRN (23:00)
[2024-06-26] MEDS ORDERED: mag hydrox/Alum hydrox/simeth 30ml oral suspension PO PRN (23:00)
[2024-06-26] MEDS ORDERED: magnesium hydroxide 30ml (MOM) UD suspension PO PRN (23:00)
[2024-06-26] MEDS ORDERED: morphine 2 MG/ML inj. syringe IV PRN (23:00)
[2024-06-26] MEDS ORDERED: potassium Cl 40MEQ/1/2NS 520ml 520 ML IV PRN (23:00)
[2024-06-26] MEDS ORDERED: magnesium sulf-water 4G/100mL 100 ML IV PRN (23:00)
[2024-06-26] MEDS ORDERED: magnesium sulf-water 2g/50mL 50 ML IV PRN (23:00)
[2024-06-26] MEDS ORDERED: ondansetron/PF 4mg/2ml inj IV PRN (23:00)
[2024-06-27] VITALS (7 sets, daily range): BP systolic 113–133; BP diastolic 65–75; PULSE 62–99; RESP 16–18; TEMP 97.7–99; O2SAT 92–96
[2024-06-27] MEDS ORDERED: DEXTROSE 15 GM of carb/4 tabs (each vial/BOTTLE has 4 tablets) PO PRN ×2 (00:55)
[2024-06-27] MEDS ORDERED: glucagon, human recombinant 1mg kit SUBCUT PRN (00:55)
[2024-06-27] MEDS ORDERED: dextrose 50%-water 50ml dispensing syringe IV PRN ×2 (00:55)
[2024-06-27] MEDS: morphine 2 MG/ML inj. syringe IV PRN (03:08)
[2024-06-27 06:30] LABS: BASOPHILS # (AUTO) 0.1 X10'3 (0-0.2); BASOPHILS % (AUTO) 1.1 % (0-1); EOSINOPHILS # (AUTO) 0.2 X10'3 (0-0.9); EOSINOPHILS % (AUTO) 1.8 % (0-6); HEMATOCRIT 28.5 % (42.0-52.0); HEMOGLOBIN 9.4 g/dl (14.0-17.9); LYMPHOCYTES # (AUTO) 1.8 X10'3 (1.1-4.8); LYMPHOCYTES % (AUTO) 21.2 % (21-51); MEAN CORPUSCULAR HEMOGLOBIN 27.5 PG (27.0-31.0); MEAN CORPUSCULAR HGB CONC 32.9 g/dL (33.0-36.5); MEAN CORPUSCULAR VOLUME 83.6 FL (78-98); MEAN PLATELET VOLUME 7.1 FL (7.4-10.4); MONOCYTES # (AUTO) 0.8 X10'3 (0-0.9); MONOCYTES % (AUTO) 9.3 % (2-12); NEUTROPHILS # (AUTO) 5.7 X10'3 (1.8-7.7); NEUTROPHILS % (AUTO) 66.6 % (42-75); PLATELET COUNT 469 X10'3 (140-440); RED BLOOD COUNT 3.41 X10'6 (4.70-6.10); RED CELL DISTRIBUTION WIDTH 18.8 % (11.5-14.5); WHITE BLOOD COUNT 8.5 X10'3 (4.5-11.0)
[2024-06-27 06:50] LABS: ALANINE AMINOTRANSFERASE 34 U/L (12-78); ALBUMIN 1.6 G/DL (3.4-5.0); ALBUMIN/GLOBULIN RATIO 0.4 (1.1-1.5); ALKALINE PHOSPHATASE 71 IU/L (46-116); ANION GAP 8 (8-16); ASPARTATE AMINO TRANSFERASE 45 U/L (10-37); BILIRUBIN,TOTAL 0.4 MG/DL (0.1-1.0); BLOOD UREA NITROGEN 11 MG/DL (7-18); BUN/CREATININE RATIO 10.2 (10.0-20.0); CALCIUM 8.3 MG/DL (8.5-10.1); CHLORIDE 102 MMOL/L (99-107); CREATININE 1.08 MG/DL (0.60-1.10); GLUCOSE 176 MG/DL (70-104); MAGNESIUM 1.5 MG/DL (1.5-2.4); POTASSIUM 3.3 MMOL/L (3.5-5.1); SODIUM 139 MMOL/L (135-145); TOTAL PROTEIN 5.7 G/DL (6.4-8.2); eCRCL 67 ML/MIN; eGFR 68 ML/MIN
[2024-06-27] MEDS: docusate sod 100mg capsule PO SCH (08:17)
[2024-06-27] MEDS: levoFLOXACIN-Levaquin 500mg/D5 100 ML IV SCH (08:17)
[2024-06-27] MEDS: potassium Cl 20 mEq SR tablet PO PRN (08:19)
[2024-06-27] MEDS: K and/or MAG REPLACEMENT MC SCH (08:19)
[2024-06-27] MEDS: heparin, porcine 5000 units/ml vial SQ SCH (08:20)
[2024-06-27] MEDS: INSULIN LISPRO 100 UNIT/ML INSULN.PEN MULTI-DOSE SQ SCH (08:22)
[2024-06-27] MEDS: furosemide 40mg/4ml inj IV SCH (11:11)
[2024-06-27 12:38] LABS: C DIFF ANTIGEN NEGATIVE (NEGATIVE); C DIFF SPECIMEN=DIARRHEA? ACCEPTABLE; C DIFFICILE TOXINS A&B NEGATIVE (Neg)
[2024-06-27] MEDS: loperamide 2mg capsule PO ONE (12:57)
[2024-06-27] MEDS: insulin glargine (Lantus) pen - multi-dose SQ SCH (21:41)
[2024-06-27] MEDS: loperamide 2mg capsule PO PRN (21:47)
[2024-06-28 05:50] LABS: EOSINOPHILS # (AUTO) 0.1 X10'3 (0-0.9); EOSINOPHILS % (AUTO) 1.7 % (0-6); HEMOGLOBIN 8.9 g/dl (14.0-17.9); MONOCYTES # (AUTO) 0.8 X10'3 (0-0.9)
[2024-06-28 05:52] LABS: BASOPHILS # (AUTO) 0.1 X10'3 (0-0.2); BASOPHILS % (AUTO) 1.5 % (0-1); HEMATOCRIT 27.8 % (42.0-52.0); LYMPHOCYTES # (AUTO) 1.6 X10'3 (1.1-4.8); LYMPHOCYTES % (AUTO) 21.7 % (21-51); MEAN CORPUSCULAR HEMOGLOBIN 26.7 PG (27.0-31.0); MEAN CORPUSCULAR HGB CONC 31.9 g/dL (33.0-36.5); MEAN CORPUSCULAR VOLUME 83.7 FL (78-98); MEAN PLATELET VOLUME 7.4 FL (7.4-10.4); MONOCYTES % (AUTO) 11.2 % (2-12); NEUTROPHILS # (AUTO) 4.8 X10'3 (1.8-7.7); NEUTROPHILS % (AUTO) 63.9 % (42-75); PLATELET COUNT 433 X10'3 (140-440); RED BLOOD COUNT 3.32 X10'6 (4.70-6.10); RED CELL DISTRIBUTION WIDTH 18.9 % (11.5-14.5); WHITE BLOOD COUNT 7.5 X10'3 (4.5-11.0)
[2024-06-28 06:11] LABS: ALANINE AMINOTRANSFERASE 29 U/L (12-78); ALBUMIN 1.6 G/DL (3.4-5.0); ALBUMIN/GLOBULIN RATIO 0.4 (1.1-1.5); ALKALINE PHOSPHATASE 64 IU/L (46-116); ANION GAP 8 (8-16); ASPARTATE AMINO TRANSFERASE 37 U/L (10-37); BILIRUBIN,TOTAL 0.4 MG/DL (0.1-1.0); BLOOD UREA NITROGEN 9 MG/DL (7-18); BUN/CREATININE RATIO 8.5 (10.0-20.0); CALCIUM 8.2 MG/DL (8.5-10.1); CHLORIDE 100 MMOL/L (99-107); CREATININE 1.06 MG/DL (0.60-1.10); GLUCOSE 128 MG/DL (70-104); MAGNESIUM 1.4 MG/DL (1.5-2.4); SODIUM 137 MMOL/L (135-145); TOTAL CARBON DIOXIDE 28.6 MMOL/L (24-32); TOTAL PROTEIN 5.6 G/DL (6.4-8.2); eCRCL 69 ML/MIN; eGFR 70 ML/MIN
[2024-06-28 06:38] VITALS: BP 124/66; PULSE 78; RESP 20; TEMP 98.9; O2SAT 92
[2024-06-28 07:16] LABS: ANISOCYTOSIS 2+; PLATELET ESTIMATE NORMAL; POLYCHROMASIA 1+; ROULEAUX 1+
[2024-06-28 08:00] VITALS: RESP 16
[2024-06-28] MEDS: atorvastatin 20mg tablet PO SCH (09:08)
[2024-06-28] MEDS: metoprolol succinate 25mg (24-HOUR) SR. Tablet PO SCH (09:08)
[2024-06-28 11:35] VITALS: BP 134/72; PULSE 93; RESP 20; TEMP 97.8; O2SAT 98
[2024-06-28] MEDS: magnesium Cl slow-release 64mg tablet PO PRN (14:46)
[2024-06-28] MEDS: potassium Cl 20 mEq SR tablet PO PRN (14:47)
[2024-06-28 18:00] VITALS: BP 112/58; PULSE 58; RESP 16; TEMP 98.1; O2SAT 96
[2024-06-28 19:07] LABS: CREATINE KINASE 369 U/L (39-308); MAGNESIUM 1.2 MG/DL (1.5-2.4); POTASSIUM 3.4 MMOL/L (3.5-5.1)
[2024-06-28 19:15] VITALS: RESP 16
[2024-06-28 23:00] VITALS: BP 89/52; PULSE 83; RESP 14; TEMP 98.3; O2SAT 92
[2024-06-29 06:00] VITALS: BP 115/63; PULSE 82; RESP 13; TEMP 99.1; O2SAT 94
[2024-06-29 06:05] LABS: BASOPHILS # (AUTO) 0.1 X10'3 (0-0.2); BASOPHILS % (AUTO) 1.1 % (0-1); EOSINOPHILS # (AUTO) 0.1 X10'3 (0-0.9); EOSINOPHILS % (AUTO) 1.6 % (0-6); HEMATOCRIT 27.2 % (42.0-52.0); HEMOGLOBIN 9.1 g/dl (14.0-17.9); LYMPHOCYTES # (AUTO) 1.6 X10'3 (1.1-4.8); LYMPHOCYTES % (AUTO) 19.6 % (21-51); MEAN CORPUSCULAR HEMOGLOBIN 27.7 PG (27.0-31.0); MEAN CORPUSCULAR HGB CONC 33.5 g/dL (33.0-36.5); MEAN CORPUSCULAR VOLUME 82.7 FL (78-98); MEAN PLATELET VOLUME 7.2 FL (7.4-10.4); MONOCYTES # (AUTO) 0.8 X10'3 (0-0.9); NEUTROPHILS # (AUTO) 5.6 X10'3 (1.8-7.7); NEUTROPHILS % (AUTO) 67.7 % (42-75); PLATELET COUNT 399 X10'3 (140-440); RED BLOOD COUNT 3.29 X10'6 (4.70-6.10); RED CELL DISTRIBUTION WIDTH 18.8 % (11.5-14.5); WHITE BLOOD COUNT 8.4 X10'3 (4.5-11.0)
[2024-06-29 06:19] LABS: ALANINE AMINOTRANSFERASE 26 U/L (12-78); ALBUMIN 1.7 G/DL (3.4-5.0); ALBUMIN/GLOBULIN RATIO 0.4 (1.1-1.5); ALKALINE PHOSPHATASE 62 IU/L (46-116); ANION GAP 6 (8-16); ASPARTATE AMINO TRANSFERASE 38 U/L (10-37); BILIRUBIN,TOTAL 0.4 MG/DL (0.1-1.0); BLOOD UREA NITROGEN 7 MG/DL (7-18); CALCIUM 8.2 MG/DL (8.5-10.1); CHLORIDE 100 MMOL/L (99-107); CREATININE 1.16 MG/DL (0.60-1.10); GLUCOSE 126 MG/DL (70-104); MAGNESIUM 1.4 MG/DL (1.5-2.4); POTASSIUM 3.4 MMOL/L (3.5-5.1); SODIUM 135 MMOL/L (135-145); TOTAL CARBON DIOXIDE 29.5 MMOL/L (24-32); TOTAL PROTEIN 5.9 G/DL (6.4-8.2); eCRCL 63 ML/MIN; eGFR 63 ML/MIN
[2024-06-29 08:00] VITALS: RESP 16; O2SAT 94
[2024-06-29] MEDS: furosemide 40mg/4ml inj IV SCH (08:37)
[2024-06-29] MEDS: potassium Cl 20 mEq SR tablet PO SCH (08:40)
[2024-06-29 11:12] VITALS: BP 119/62; PULSE 78; RESP 18; TEMP 97.8; O2SAT 92
[2024-06-29 18:00] VITALS: BP 103/56; PULSE 82; RESP 14; TEMP 98.8; O2SAT 91
[2024-06-29 20:00] VITALS: RESP 14; O2SAT 91
[2024-06-29 22:00] VITALS: BP 109/60; PULSE 77; RESP 18; TEMP 98.3; O2SAT 95
[2024-06-30 06:00] VITALS: BP 100/58; PULSE 75; RESP 17; TEMP 98; O2SAT 96
[2024-06-30 07:08] LABS: BASOPHILS # (AUTO) 0.1 X10'3 (0-0.2); BASOPHILS % (AUTO) 1.3 % (0-1); EOSINOPHILS # (AUTO) 0.2 X10'3 (0-0.9); EOSINOPHILS % (AUTO) 1.7 % (0-6); HEMATOCRIT 29.9 % (42.0-52.0); HEMOGLOBIN 9.7 g/dl (14.0-17.9); LYMPHOCYTES # (AUTO) 1.8 X10'3 (1.1-4.8); LYMPHOCYTES % (AUTO) 17.1 % (21-51); MEAN CORPUSCULAR HEMOGLOBIN 27.6 PG (27.0-31.0); MEAN CORPUSCULAR HGB CONC 32.5 g/dL (33.0-36.5); MEAN CORPUSCULAR VOLUME 84.9 FL (78-98); MONOCYTES # (AUTO) 0.6 X10'3 (0-0.9); MONOCYTES % (AUTO) 5.9 % (2-12); NEUTROPHILS # (AUTO) 7.7 X10'3 (1.8-7.7); PLATELET COUNT 351 X10'3 (140-440); RED BLOOD COUNT 3.52 X10'6 (4.70-6.10); RED CELL DISTRIBUTION WIDTH 18.8 % (11.5-14.5); WHITE BLOOD COUNT 10.4 X10'3 (4.5-11.0)
[2024-06-30 07:19] LABS: ALANINE AMINOTRANSFERASE 20 U/L (12-78); ALBUMIN 1.7 G/DL (3.4-5.0); ALBUMIN/GLOBULIN RATIO 0.4 (1.1-1.5); ALKALINE PHOSPHATASE 65 IU/L (46-116); ANION GAP 8 (8-16); ASPARTATE AMINO TRANSFERASE 36 U/L (10-37); BILIRUBIN,TOTAL 0.4 MG/DL (0.1-1.0); BLOOD UREA NITROGEN 9 MG/DL (7-18); CALCIUM 8.7 MG/DL (8.5-10.1); CHLORIDE 100 MMOL/L (99-107); CREATINE KINASE 214 U/L (39-308); CREATININE 1.29 MG/DL (0.60-1.10); GLUCOSE 141 MG/DL (70-104); MAGNESIUM 1.5 MG/DL (1.5-2.4); POTASSIUM 3.7 MMOL/L (3.5-5.1); SODIUM 135 MMOL/L (135-145); TOTAL CARBON DIOXIDE 26.6 MMOL/L (24-32); eCRCL 56 ML/MIN; eGFR 56 ML/MIN
[2024-06-30 08:00] VITALS: RESP 17; O2SAT 96
[2024-06-30] MEDS: furosemide 20 MG/2 ML vial IV SCH (08:59)
[2024-06-30] MEDS: levoFLOXACIN 750MG TABLET PO SCH (09:10)
[2024-06-30] MEDS: atorvastatin 20mg tablet PO SCH (09:10)
[2024-06-30 10:00] VITALS: BP 114/75; PULSE 89; RESP 17; TEMP 98.9; O2SAT 96
[2024-06-30] MEDS: normal saline 1000ml 1,000 ML IV SCH (15:00)
[2024-06-30] MEDS: lactose-reduced food (Ensure Enlive) - 237ml bottle PO SCH (17:34)
[2024-06-30] MEDS: multivitamins, therapeutics tablet PO SCH (18:09)
[2024-06-30] MEDS: ascorbic acid 500mg tablet PO SCH (18:09)
[2024-06-30 20:00] VITALS: RESP 18; O2SAT 92
[2024-06-30 22:00] VITALS: BP 132/66; PULSE 91; RESP 18; TEMP 99.3; O2SAT 98
[2024-07-01 06:00] VITALS: BP 121/63; PULSE 93; RESP 16; TEMP 98.6; O2SAT 91
[2024-07-01 06:21] LABS: BASOPHILS # (AUTO) 0.1 X10'3 (0-0.2); BASOPHILS % (AUTO) 1.3 % (0-1); EOSINOPHILS # (AUTO) 0.2 X10'3 (0-0.9); EOSINOPHILS % (AUTO) 1.7 % (0-6); HEMATOCRIT 25.8 % (42.0-52.0); HEMOGLOBIN 8.7 g/dl (14.0-17.9); LYMPHOCYTES # (AUTO) 1.8 X10'3 (1.1-4.8); LYMPHOCYTES % (AUTO) 16.1 % (21-51); MEAN CORPUSCULAR HEMOGLOBIN 27.6 PG (27.0-31.0); MEAN CORPUSCULAR HGB CONC 33.6 g/dL (33.0-36.5); MEAN CORPUSCULAR VOLUME 82.3 FL (78-98); MEAN PLATELET VOLUME 7.4 FL (7.4-10.4); MONOCYTES # (AUTO) 0.8 X10'3 (0-0.9); MONOCYTES % (AUTO) 7.4 % (2-12); NEUTROPHILS % (AUTO) 73.5 % (42-75); PLATELET COUNT 380 X10'3 (140-440); RED BLOOD COUNT 3.14 X10'6 (4.70-6.10); RED CELL DISTRIBUTION WIDTH 18.7 % (11.5-14.5); WHITE BLOOD COUNT 10.9 X10'3 (4.5-11.0)
[2024-07-01 06:46] LABS: ALANINE AMINOTRANSFERASE 22 U/L (12-78); ALBUMIN 1.6 G/DL (3.4-5.0); ALBUMIN/GLOBULIN RATIO 0.4 (1.1-1.5); ALKALINE PHOSPHATASE 65 IU/L (46-116); ANION GAP 12 (8-16); ASPARTATE AMINO TRANSFERASE 30 U/L (10-37); BILIRUBIN,TOTAL 0.5 MG/DL (0.1-1.0); BLOOD UREA NITROGEN 10 MG/DL (7-18); BUN/CREATININE RATIO 9.2 (10.0-20.0); CALCIUM 9.2 MG/DL (8.5-10.1); CHLORIDE 101 MMOL/L (99-107); CREATININE 1.09 MG/DL (0.60-1.10); GLUCOSE 157 MG/DL (70-104); POTASSIUM 3.9 MMOL/L (3.5-5.1); SODIUM 137 MMOL/L (135-145); TOTAL CARBON DIOXIDE 24.1 MMOL/L (24-32); TOTAL PROTEIN 5.9 G/DL (6.4-8.2); eCRCL 67 ML/MIN; eGFR 68 ML/MIN
[2024-07-01 08:00] VITALS: RESP 16; O2SAT 92
[2024-07-01 10:00] VITALS: BP 118/63; PULSE 89; RESP 20; TEMP 99; O2SAT 92
[2024-07-01] MEDS: ferrous sulfate 325mg tablet PO SCH (17:56)
[2024-07-01 18:00] VITALS: BP 102/60; PULSE 80; RESP 18; TEMP 98.4; O2SAT 95
[2024-07-01 20:00] VITALS: RESP 18; O2SAT 95
[2024-07-01 22:00] VITALS: BP 103/52; PULSE 77; RESP 13; TEMP 97.7; O2SAT 92
[2024-07-02 06:00] VITALS: BP 92/47; PULSE 82; RESP 15; TEMP 97.6; O2SAT 94
[2024-07-02] MEDS ORDERED: magnesium Cl slow-release 64mg tablet PO PRN (07:30)
[2024-07-02] MEDS ORDERED: magnesium sulf-water 4G/100mL 100 ML IV PRN (07:30)
[2024-07-02] MEDS ORDERED: magnesium sulf-water 2g/50mL 50 ML IV PRN (07:30)
[2024-07-02] MEDS ORDERED: potassium Cl 40MEQ/1/2NS 520ml 520 ML IV PRN (07:30)
[2024-07-02] MEDS ORDERED: potassium Cl 20 mEq SR tablet PO PRN (07:30)
[2024-07-02] MEDS ORDERED: K and/or MAG REPLACEMENT MC SCH (08:00)
[2024-07-02 08:11] LABS: MAGNESIUM 1.5 MG/DL (1.5-2.4)
[2024-07-02] MEDS: potassium Cl 20 mEq SR tablet PO PRN (09:16)
[2024-07-02 09:32] LABS: BASOPHILS # (AUTO) 0.1 X10'3 (0-0.2); BASOPHILS % (AUTO) 1.5 % (0-1); EOSINOPHILS # (AUTO) 0.3 X10'3 (0-0.9); HEMATOCRIT 27.9 % (42.0-52.0); LYMPHOCYTES # (AUTO) 1.4 X10'3 (1.1-4.8); LYMPHOCYTES % (AUTO) 16.1 % (21-51); MEAN CORPUSCULAR HEMOGLOBIN 27.4 PG (27.0-31.0); MEAN CORPUSCULAR HGB CONC 32.2 g/dL (33.0-36.5); MEAN PLATELET VOLUME 7.8 FL (7.4-10.4); MONOCYTES # (AUTO) 0.7 X10'3 (0-0.9); MONOCYTES % (AUTO) 8.5 % (2-12); NEUTROPHILS # (AUTO) 6.2 X10'3 (1.8-7.7); NEUTROPHILS % (AUTO) 70.9 % (42-75); PLATELET COUNT 368 X10'3 (140-440); RED BLOOD COUNT 3.28 X10'6 (4.70-6.10); WHITE BLOOD COUNT 8.8 X10'3 (4.5-11.0)
[2024-07-02 09:49] LABS: ALANINE AMINOTRANSFERASE 21 U/L (12-78); ALBUMIN 1.6 G/DL (3.4-5.0); ALBUMIN/GLOBULIN RATIO 0.4 (1.1-1.5); ALKALINE PHOSPHATASE 64 IU/L (46-116); ANION GAP 12 (8-16); ASPARTATE AMINO TRANSFERASE 37 U/L (10-37); BILIRUBIN,TOTAL 0.5 MG/DL (0.1-1.0); BLOOD UREA NITROGEN 10 MG/DL (7-18); BUN/CREATININE RATIO 9.4 (10.0-20.0); CHLORIDE 103 MMOL/L (99-107); CREATININE 1.06 MG/DL (0.60-1.10); GLUCOSE 141 MG/DL (70-104); POTASSIUM 3.8 MMOL/L (3.5-5.1); SODIUM 136 MMOL/L (135-145); TOTAL CARBON DIOXIDE 21.2 MMOL/L (24-32); TOTAL PROTEIN 5.8 G/DL (6.4-8.2); eCRCL 69 ML/MIN; eGFR 70 ML/MIN
[2024-07-02 10:00] VITALS: BP 113/71; PULSE 74; RESP 18; TEMP 98.1; O2SAT 98
== END 2024-07-02 17:35 | DRG 871 ==
LOC: ER 16:54 → ED HOLD 23:04 → SUR 3N 06-27 01:10 → ORTHO 4S 06-29 16:59
PROVIDERS: ADMIT Surgery Surgical Critical Care; ATTEND Internal Medicine
PROC: CB121ZZ Planar Nuclear Medicine Imaging of Lungs and Bronchi using Technetium 99m (Tc-99m) (ICD-10-PCS; principal; 2024-06-30)
DX: A41.9 Sepsis, unspecified organism (principal); E43 Unspecified severe protein-calorie malnutrition; N17.9 Acute kidney failure, unspecified; J96.10 Chronic respiratory failure, unspecified whether with hypoxia or hypercapnia; E87.1 Hypo-osmolality and hyponatremia; E86.0 Dehydration; E87.6 Hypokalemia; Z66 Do not resuscitate; D64.9 Anemia, unspecified; I25.10 Atherosclerotic heart disease of native coronary artery without angina pectoris; E11.9 Type 2 diabetes mellitus without complications; Z79.899 Other long term (current) drug therapy; Z79.4 Long term (current) use of insulin; Z68.29 Body mass index [BMI] 29.0-29.9, adult; Z91.041 Radiographic dye allergy status; H70.90 Unspecified mastoiditis, unspecified ear; R19.7 Diarrhea, unspecified
CPT/HCPCS: 36415; 71045; 78582; 80053; 82140; 82550; 82948; 83036; 83690; 83735; 83880; 84132; 84145; 84484; 85008; 85025; 85379; 85651; 87081; 87324; 87449; 93005; 97110; 97161; 97530; 97535; 99285; A4649; A6209; A6212; A6213; A6223; A6250; A6446; A6449; A6590; A9539; A9540; G0378; J1644; J1815; J1940; J1956; J2270; J7030; J7040